=== PATIENT | female | born 1995 | race African-American/Black ===

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

== ENCOUNTER 2017-12-19 12:06 | Emergency (ER) | payer MEDICAID ==
[~2017-12-19] VITALS: Ht 165.1 cm; Wt 70.3 kg
[~2017-12-19 12:06] MED LIST changes: +BACTRIM 400-801 EACH ORAL; +CEPHALEXIN500 MG ORAL; +ZOFRAN ODT8 MG ORAL
[2017-12-19 12:46] VITALS: BP 115/74
[2017-12-19] MEDS ORDERED: Metoclopramide 10mg/2ml Inj IVP ONE (13:15)
[2017-12-19] MEDS ORDERED: Sodium Chloride 500ML 500 ML IV ONE (13:15)
[2017-12-19 13:22] LABS: EOSINOPHILS % (AUTO) 0.2 % (0.0-3.0); HEMATOCRIT 40.1 % (37.0-47.0); HEMOGLOBIN 13.1 G/DL (12.0-16.0); LYMPHOCYTES % (AUTO) 16.2 % (20.0-45.0); MEAN CORPUSCULAR VOLUME 79 FL (80-99); NEUTROPHILS % (AUTO) 75.6 % (45.0-75.0); PLATELET COUNT 213 K/UL (150-450); RED BLOOD COUNT 5.11 M/UL (4.20-5.40); RED CELL DISTRIBUTION WIDTH 13.5 % (11.6-14.8); WHITE BLOOD COUNT 11.6 K/UL (4.8-10.8)
[2017-12-19 14:14] LABS: APPEARANCE,URINE CLEAR; BILIRUBIN, URINE NEGATIVE (NEGATIVE); GLUCOSE, URINE (UA) NEGATIVE (NEGATIVE); KETONES,URINE NEGATIVE (NEGATIVE); LEUKOCYTE ESTERASE ,URINE 1+ (NEGATIVE); NITRITE,URINE NEGATIVE (NEGATIVE); PH,URINE 6.5 (4.5-8.0); PROTEIN,URINE 1+ (NEGATIVE); UROBILINOGEN,URINE 4 MG/DL (0.0-1.0)
[2017-12-19 14:18] LABS: COLOR,URINE YELLOW
--- NOTE | 2017-12-19 14:31 | Emergency Room Report ---
History of Present Illness General Chief Complaint: Vaginal Source: Patient Present Illness HPI 22-year-old female presents emergency department complaining of Vaginal bleeding of bright red blood times one day. Patient reports that she is approximately 6 weeks . Patient denies pain or cramping. Patient denies vaginal discharge otherwise. Patient reports that she recently had ultrasound performed here and IUP has been confirmed. Patient does not know her blood type she has. Patient is . Denies abdominal tenderness, recent trauma or fall. Patient denies fevers, chills, dysuria, urinary frequency. Patient does report moderate nausea. Allergies: Coded Allergies: NO KNOWN DRUG ALLERGIES (Unverified Allergy, Unknown, 05/09/14) Patient History Past Medical History: see triage record Past Surgical History: none Now: Yes - 6 weeks per pt Reviewed Nursing Documentation: PMH: Agreed; PSxH: Agreed Nursing Documentation-PMH Past Medical History: No Stated History Review of Systems All Other Systems: negative except mentioned in HPI Physical Exam Vital Signs Date Time Temp Pulse Resp B/P (MAP) Pulse Ox O2 Delivery O2 Flow Rate FiO2 12/19/17 12:27 98.5 88 18 115/74 100 Room Air 98.4 Sp02 EP Interpretation: reviewed, normal General Appearance: no apparent distress, alert, GCS 15, non-toxic Head: normocephalic, atraumatic ENT: hearing grossly normal, normal voice Neck: full range of motion Respiratory: lungs clear, normal breath sounds, speaking full sentences Cardiovascular #1: regular rate, rhythm Gastrointestinal: normal bowel sounds, non tender, soft, non-distended, no guarding Rectal: deferred Genitourinary: normal inspection, no CVA tenderness, adnexa normal, ext genitalia/vag normal, os closed, other - no obvious blood noted in the vaginal vault. Musculoskeletal: back normal, gait/station normal, normal range of motion, non- tender Neurologic: alert, oriented x3, responsive, motor strength/tone normal, sensory intact, normal gait, speech normal, grossly normal Psychiatric: judgement/insight normal Skin: normal color, no rash, warm/dry, well hydrated Lymphatic: no adenopathy Medical Decision Making PA Attestation Dr. Shah is my supervising Physician whom patient management has been discussed with. Diagnostic Impression: Primary Impression: Spotting during in first trimester Additional Impression: Threatened in early ER Course 22-year-old female presents emergency department complaining of Vaginal bleeding of bright red blood times one day. Patient reports that she is approximately 6 weeks . Patient denies pain or cramping. Patient denies vaginal discharge otherwise. Patient reports that she recently had ultrasound performed here and IUP has been confirmed. Patient does not know her blood type she has. Patient is . Denies abdominal tenderness, recent trauma or fall. Patient denies fevers, chills, dysuria, urinary frequency. Patient does report moderate nausea. [facility] NOTE ABO and Rh not ordered as this is pt. first , RH factor is not a concern until subsequent pregnancies Ddx considered but are not limited to: Fibroid, ectopic , Fibroid, Spontaneous , Vital signs: are WNL, pt. is afebrile Pelvic Exam: Os is closed. H&PE are most consistent with: spotting during early , Inevitable , Spontaneous ORDERS: -Urine hcg- Positive -serum Hcg Quant: 59,817 - Blood/RH type and screen- see attached labs --Review of recent ultrasound shows IUP approximately 6 weeks gestation, -Bedside ultrasound performed today showed normal heart rate. ED INTERVENTIONS: None at this time. DISCHARGE: At this time pt. is stable for d/c to home. Will provide printed patient care instructions, and any necessary prescriptions. Care plan and follow up instructions have been discussed with the patient prior to discharge. Labs Test 12/19/17 13:00 White Blood Count 11.6 K/UL (4.8-10.8) Red Blood Count 5.11 M/UL (4.20-5.40) Hemoglobin 13.1 G/DL (12.0-16.0) Hematocrit 40.1 % (37.0-47.0) Mean Corpuscular Volume 79 FL (80-99) Mean Corpuscular Hemoglobin 25.7 PG (27.0-31.0) Mean Corpuscular Hemoglobin Concent 32.7 G/DL (32.0-36.0) Red Cell Distribution Width 13.5 % (11.6-14.8) Platelet Count 213 K/UL (150-450) Mean Platelet Volume 12.1 FL (6.5-10.1) Neutrophils (%) (Auto) 75.6 % (45.0-75.0) Lymphocytes (%) (Auto) 16.2 % (20.0-45.0) Monocytes (%) (Auto) 7.0 % (1.0-10.0) Eosinophils (%) (Auto) 0.2 % (0.0-3.0) Basophils (%) (Auto) 1.0 % (0.0-2.0) Urine Color Yellow Urine Appearance Clear Urine pH 6.5 (4.5-8.0) Urine Specific [place] 1.010 (1.005-1.035) Urine Protein 1+ (NEGATIVE) Urine Glucose (UA) Negative (NEGATIVE) Urine Ketones Negative (NEGATIVE) Urine Blood Negative (NEGATIVE) Urine Nitrite Negative (NEGATIVE) Urine Bilirubin Negative (NEGATIVE) Urine Urobilinogen 4 MG/DL (0.0-1.0) Urine Leukocyte Esterase 1+ (NEGATIVE) Urine RBC 0-2 /HPF (0 - 2) Urine WBC 2-4 /HPF (0 - 2) Urine Squamous Epithelial Cells Few /LPF (NONE/OCC) Urine Bacteria Occasional /HPF (NONE) Human Chorionic Gonadotropin, Quant 66184 mIU/mL (1-6) Last Vital Signs Date Time Temp Pulse Resp B/P (MAP) Pulse Ox O2 Delivery O2 Flow Rate FiO2 12/19/17 12:46 98.4 88 18 115/74 100 Room Air 98.4 Disposition: HOME, SELF-CARE Condition: Stable Scripts Vit #91/Fe Fum/Fa/Dha ( + DHA COMBO PACK) 1 Each Combo..pkg 1 EACH PO DAILY, #1 PACK 4 Refills Prov: Ann Dean 12/19/17 Referrals: [facility] (PCP) Departure Forms: Return to Work Return to Work Date: Dec 22, 2017 Work Restrictions: No Heavy Lifting, No Prolonged Standing Other Restrictions: light duty x 1 week upon return. Return to Full Activity: Dec 29, 2017 Patient Instructions: Threatened Miscarriage, [id number] Additional Instructions: Take medications as directed. Follow up with a OBGYN within 3 days, even if your symptoms have resolved. Return sooner to ED if new symptoms occur, or current symptoms become worse. - Please note that this Emergency Department Report was dictated using [employer]oquiidirector translational technology software, occasionally this can lead to erroneous entry secondary to interpretation by the dictation equipment. Ann Dean Dec 19, 2017 14:31
[2017-12-19] MEDS ORDERED: PRENATAL + DHA1 EAC1 PO (14:32)
[2017-12-19 14:43] VITALS: BP 115/74
== END 2017-12-19 14:43 | disposition home or self-care (01) ==
LOC: EMR 12:22
DX: O20.0 Threatened abortion (principal); Z3A.01 Less than 8 weeks gestation of pregnancy
CPT/HCPCS: 36415; 81001; 84702; 85025; 99283; J7040; J2765

== ENCOUNTER 2018-01-14 10:48 | Emergency (ER) | payer MEDICAID ==
[~2018-01-14] VITALS: Ht 167.6 cm; Wt 70.8 kg
[~2018-01-14 10:48] MED LIST changes: +PRENATAL + DHA1 EAC1 PO
[2018-01-14 11:06] VITALS: BP 104/76
--- NOTE | 2018-01-14 12:09 | Emergency Room Report ---
History of Present Illness General Chief Complaint: Nausea, Vomiting, and Diarrhea Source: Patient Present Illness [facility] Ms. Lopez is a who is currently 10 weeks 6 days according to estimate due date 08/06/2018. She has had morning sickness throughout her . She continues to have vomiting today with yellow emesis. She developed diarrhea earlier today. She has mild stomach upset. She denies chest pain. Denies headache. She feels lightheaded. She feels as if she needs IV fluids. She is followed by [facility] Dr. Murillo. She plans to deliver a baby at [facility]. Allergies: Coded Allergies: NO KNOWN DRUG ALLERGIES (Unverified Allergy, Unknown, 05/09/14) Patient History Past Medical History: none Past Surgical History: other - two surgeries for pilonidal abscess Last Menstrual Period: 10/10/17 Now: Yes : 1 Para: 0 Nursing Documentation-[facility] Past Medical History: No Stated History Review of Systems Constitutional: Reports: malaise; Denies: fever Cardiovascular: Denies: chest pain All Other Systems: negative except mentioned in HPI Physical Exam Vital Signs Date Time Temp Pulse Resp B/P (MAP) Pulse Ox O2 Delivery O2 Flow Rate FiO2 01/14/18 11:02 98.8 76 16 104/76 100 98.8 Sp02 EP Interpretation: reviewed, normal General Appearance: no apparent distress, alert, GCS 15, non-toxic, other - well-appearing talkative Head: normocephalic, atraumatic Eyes: bilateral eye normal inspection ENT: hearing grossly normal, normal pharynx, no angioedema, normal voice Neck: full range of motion, supple/symm/no masses Respiratory: chest non-tender, lungs clear, normal breath sounds, speaking full sentences Cardiovascular #1: regular rate, rhythm, no edema Cardiovascular #2: 2+ carotid (R), 2+ carotid (L), 2+ radial (R), 2+ radial (L) , 2+ dorsalis pedis (R), 2+ dorsalis pedis (L) Gastrointestinal: normal bowel sounds, non tender, soft, non-distended, no guarding, no rebound Musculoskeletal: back normal, gait/station normal, normal range of motion, non- tender, calf tenderness Neurologic: alert, oriented x3, responsive, motor strength/tone normal, sensory intact, speech normal Psychiatric: judgement/insight normal, memory normal, mood/affect normal, no suicidal/homicidal ideation Skin: normal color, no rash, warm/dry, well hydrated Lymphatic: no adenopathy Medical Decision Making Diagnostic Impression: Primary Impression: Hyperemesis gravidarum ER Course Ms. Lopez presents with hyperemesis gravidarum. I do not suspect ectopic . She does not have any pain. She denies any vaginal bleeding or vaginal discharge. No indication of infection. She has had normal ultrasound according to her report. She received IV fluid therapy and discharged home. I have prescribed promethazine. Last Vital Signs Date Time Temp Pulse Resp B/P (MAP) Pulse Ox O2 Delivery O2 Flow Rate FiO2 01/14/18 11:06 98.8 76 16 104/76 100 98.8 Disposition: HOME, SELF-CARE Condition: Stable Referrals: NON PHYSICIAN (PCP) Monik Perkins MD Jan 14, 2018 12:09
[2018-01-14] MEDS ORDERED: PHENERGAN25 M1 ORAL (12:11)
[2018-01-14 12:53] VITALS: BP 109/58
[2018-01-14 12:54] VITALS: BP 109/58
== END 2018-01-14 12:55 | disposition home or self-care (01) ==
LOC: EMR 11:55
DX: O21.0 Mild hyperemesis gravidarum (principal); R19.7 Diarrhea, unspecified; Z3A.10 10 weeks gestation of pregnancy
CPT/HCPCS: 96360; 99284

== ENCOUNTER 2018-02-26 17:52 | Emergency (ER) | payer MEDICAID ==
[~2018-02-26] VITALS: Ht 165.1 cm; Wt 73.5 kg
[~2018-02-26 17:52] MED LIST changes: +PHENERGAN25 M1 ORAL
--- NOTE | 2018-02-26 18:41 | Emergency Room Report ---
History of Present Illness General Chief Complaint: Skin Rash/Abscess Present Illness HPI 22-year-old female presents to the emergency department complaining of 8 out of 10 in severity pain, swelling, tenderness and erythema to an area in the right groin progressive 2 days. Patient reports history of frequent soft tissue abscesses that require incision and drainage and antibiotics. Patient fevers or chills. Patient reports that she is currently 4 months . She is . Pt. states that she is UTD with vaccinations. Denies swollen tender lymph nodes. pt. denies hx of STI's reports she was just recently checked and specifically denies G&C. She denies abdominal pain, cramping, vaginal discharge or bleeding. no relief with hot compresses or hot baths at home. Walking exacerbates her pain. Allergies: Coded Allergies: NO KNOWN DRUG ALLERGIES (Unverified Allergy, Unknown, 05/09/14) Patient History Past Medical History: see triage record Past Surgical History: none Pertinent Family History: none Last Menstrual Period: 10/2017 Now: Yes - 4 months : 1 Para: 0 Reviewed Nursing Documentation: PMH: Agreed; PSxH: Agreed Nursing Documentation-PMH Hx Neurological Problems: No - buttock cyst surgery Review of Systems All Other Systems: negative except mentioned in HPI Physical Exam Vital Signs Date Time Temp Pulse Resp B/P (MAP) Pulse Ox O2 Delivery O2 Flow Rate FiO2 02/26/18 18:00 98.2 68 18 119/73 96 Room Air Sp02 EP Interpretation: reviewed, normal General Appearance: well appearing, no apparent distress, alert, GCS 15, non- toxic Head: normocephalic, atraumatic Eyes: bilateral eye normal inspection, bilateral eye PERRL ENT: hearing grossly normal, normal voice Neck: full range of motion Respiratory: lungs clear, normal breath sounds, speaking full sentences Cardiovascular #1: regular rate, rhythm, no edema Gastrointestinal: non tender, soft, other - Gravid Genitourinary: other - 3cm tunneled abscess, area of fluctuance is palpated. swelling noted, and palpable right inguinal lymph node. no blisters or vessicles Musculoskeletal: back normal, gait/station normal, normal range of motion, non- tender Neurologic: alert, oriented x3, responsive, motor strength/tone normal, sensory intact, speech normal, grossly normal Psychiatric: judgement/insight normal Skin: normal color, no rash, warm/dry, well hydrated, other - 3cm tunneled abscess in the right inguinal area, There is an area of fluctuance is palpated. swelling noted, and palpable right inguinal lymph node Lymphatic: other - right inguinal lad Procedures Incision and Drainage Incision and Drainage : Consent: Verbal Site: Right groin Blade Size: 11 I & D Procedure: betadine prep, sterile drapes applied, sterile dressing applied, gauze wick placed Wound Location: other - right broin Wound's Depth, Shape: linear Wound Length (cm): 1 Wound Explored: contaminated - moderate amount of purulent malodorus pus expressed from incision Anesthesia: Lidocaine w/ Epi Volume Anesthetic (ccs): 1 Splint Applied?: No Sling Applied?: No Patient Tolerated: Well Complications: None Medical Decision Making PA Attestation Dr. trinidad is my supervising Physician whom patient management has been discussed with. Diagnostic Impression: Primary Impression: Abscess ER Course 22-year-old female presents to the emergency department complaining of 8 out of 10 in severity pain, swelling, tenderness and erythema to an area in the right groin progressive 2 days. Patient reports history of frequent soft tissue abscesses that require incision and drainage and antibiotics. Patient fevers or chills. Patient reports that she is currently 4 months . She is . Pt. states that she is UTD with vaccinations. Denies swollen tender lymph nodes. pt. denies hx of STI's reports she was just recently checked and specifically denies G&C. She denies abdominal pain, cramping, vaginal discharge or bleeding. no relief with hot compresses or hot baths at home. Walking exacerbates her pain. Ddx considered but are not limited to cellulitis, abscess, LGV, cystic acne, necrotizing fasciitis, insect bite. Vital signs: are WNL, pt. is afebrile H&PE are most consistent with inguinal abscess, suspicious for hidradenitis. ORDERS: none required at this time, the diagnosis is clinical ED INTERVENTIONS: -I & D. - Keflex PO -Bacitracin TP. DISCHARGE: At this time pt. is stable for d/c to home. Will provide printed patient care instructions, and any necessary prescriptions. Care plan and follow up instructions have been discussed with the patient prior to discharge. Last Vital Signs Date Time Temp Pulse Resp B/P (MAP) Pulse Ox O2 Delivery O2 Flow Rate FiO2 02/26/18 18:00 98.2 68 18 119/73 96 Room Air Disposition: HOME, SELF-CARE Condition: Stable Scripts Chlorhexidine Gluconate* (HIBICLENS*) 118 Ml Liquid 1 APPLIC TP DAILY, #118 ML 3 Refills Prov: Ann Dean 02/26/18 Cephalexin* (KEFLEX*) 500 Mg Capsule 500 MG ORAL EVERY 12 HOURS for 7 Days, #14 CAP 0 Refills Prov: Ann Dean 02/26/18 Acetaminophen* (TYLENOL EXTRA STRENGTH*) 500 Mg Tablet 500 MG ORAL Q6H, #20 TAB 0 Refills Prov: Ann Dean 02/26/18 Referrals: NON PHYSICIAN (PCP) Patient Instructions: Abscess Additional Instructions: Take medications as directed. Follow up with a Primary Care Provider in 3-5 days, even if your symptoms have resolved. --Please review list of primary care clinics, if you do not already have a primary care provider Return sooner to ED if new symptoms occur, or current symptoms become worse. Do not drink alcohol, drive, or operate heavy machinery while taking [ ] as this may cause drowsiness. - Please note that this Emergency Department Report was dictated using [employer] removalist's assistant technology software, occasionally this can lead to erroneous entry secondary to interpretation by the dictation equipment. Ann Dean Feb 26, 2018 18:41
[2018-02-26] MEDS ORDERED: CEPHALEXIN500 MG ORAL (18:59)
[2018-02-26] MEDS ORDERED: TYLENOL EXTRA500 MG ORAL (18:59)
[2018-02-26] MEDS ORDERED: HIBICLENS118 ML TP (18:59)
[2018-02-26] MEDS ORDERED: Cephalexin 500mg cap ORAL ONE (19:15)
[2018-02-26 19:17] VITALS: BP_SYST 112; BP_SYST 119; BP_DIAS 73
== END 2018-02-26 19:18 | disposition home or self-care (01) ==
LOC: EMR 18:20
DX: L02.214 Cutaneous abscess of groin (principal); O26.90 Pregnancy related conditions, unspecified, unspecified trimester; Z3A.00 Weeks of gestation of pregnancy not specified
CPT/HCPCS: 10060; 99283

== ENCOUNTER 2018-04-24 06:46 | Emergency (ER) | payer MEDICAID ==
[~2018-04-24] VITALS: Ht 167.6 cm; Wt 80.7 kg
[~2018-04-24 06:46] MED LIST changes: +HIBICLENS118 ML TP; +TYLENOL EXTRA500 MG ORAL
--- NOTE | 2018-04-24 07:05 | NUR ---
ED Nurse Note: RECIEVED PT FROM HOME, HERE WITH C/O ABCESS / BOIL TO LEFT GROIN FOR PAST 2 DAYS, ABCESS IS SWOLLEN AND RED WITH WHITE HEAD, APPEARS TO BE READY TO DRAIN, PT HAS HISTORY OF ABCESSESS AND BOILS, EVEN HAVING TO HAVE SOME SURGICALLY REMOVED, PT IS 5 MONTHS , DENIES ANY COMPLICATIONS, PT DENIES FEVERS, DIARRHEA, NAUSEA, VOMITING OR ANY OTHER COMPLAINTS OR DISCOMFORTS, PT GOWNED AND ASSISTED TO [facility], SHIFT REPORT GIVEN TO AM NURSE TO RESUME CARE AND FOLLOW.
[2018-04-24 07:24] VITALS: BP 110/65
[2018-04-24] MEDS ORDERED: CEPHALEXIN500 MG ORAL (07:35)
--- NOTE | 2018-04-24 07:38 | Emergency Room Report ---
History of Present Illness General Chief Complaint: Skin Rash/Abscess Source: Patient Present Illness HPI Patient presents with complaints of a lesion to the left groin area reports that she has noticed that for the past several days Denies any fevers or chills denies any chest pain or shortness of breath Patient is approximately 5 months denies any vomiting or diarrhea She reports increased pain and discomfort to the lesion Denies any other back or flank pain Allergies: Coded Allergies: NO KNOWN DRUG ALLERGIES (Unverified Allergy, Unknown, 05/09/14) Patient History Past Medical History: see triage record Pertinent Family History: none Last Menstrual Period: 10/2017 Now: Yes - 5 months : 1 Para: 0 Reviewed Nursing Documentation: PMH: Agreed; PSxH: Agreed Nursing Documentation-PMH Past Medical History: No History, Except For Hx Neurological Problems: No - buttock cyst surgery Review of Systems All Other Systems: negative except mentioned in HPI Physical Exam Vital Signs Date Time Temp Pulse Resp B/P (MAP) Pulse Ox O2 Delivery O2 Flow Rate FiO2 04/24/18 06:51 97.9 90 16 112/64 99 Room Air Sp02 EP Interpretation: reviewed, normal General Appearance: well appearing, no apparent distress Head: normocephalic, atraumatic Eyes: bilateral eye PERRL, bilateral eye EOMI ENT: normal pharynx Respiratory: lungs clear Musculoskeletal: normal inspection Neurologic: alert, oriented x3, responsive Skin: other - Small pustule/folliculitis left inguinal region, well-demarcated Lymphatic: no adenopathy Medical Decision Making Diagnostic Impression: Primary Impression: folliculitis ER Course The area in question is fairly small Appears to be consistent with a folliculitis Patient is recommended to continue soaking in warm bath Was placed on short duration of Keflex secondary to previous antibiotic coverage Patient reports that she has been seen by her physician for this and was reported that they cannot do anything until the is over I recommended for the patient to follow closely with her [employer] physician Last Vital Signs Date Time Temp Pulse Resp B/P (MAP) Pulse Ox O2 Delivery O2 Flow Rate FiO2 04/24/18 07:24 97.8 78 15 110/65 99 Room Air Status: unchanged Disposition: HOME, SELF-CARE Condition: Stable Scripts Cephalexin* (KEFLEX*) 500 Mg Capsule 500 MG ORAL EVERY 8 HOURS for 3 Days, #9 CAP 0 Refills Prov: Emilia Soares DO 04/24/18 Referrals: NON PHYSICIAN (PCP) Patient Instructions: Folliculitis Additional Instructions: Please follow-up with your [employer] physician in the next 1-2 days. The emergency room has been visited several times for similar complaint during her , and your specialist should be the next consultation Emilia Soares DO Apr 24, 2018 07:38
[2018-04-24 07:44] VITALS: BP 115/78
--- NOTE | 2018-04-24 07:45 | NUR ---
ED Nurse Note: Discharge instructions given to pt. Answered all questions. Verbalized undertsanding. No acute distress noted. ID band removed. Left ER w/ steady gait and all belongings.
== END 2018-04-24 07:46 | disposition home or self-care (01) ==
LOC: EMR 07:02
DX: L73.9 Follicular disorder, unspecified (principal)
CPT/HCPCS: 99282

== ENCOUNTER 2018-06-07 09:49 | Emergency (ER) | payer MEDICAID ==
[~2018-06-07] VITALS: Ht 167.6 cm; Wt 85.7 kg
[2018-06-07] MEDS ORDERED: PRENATAL 19 TA1 EAC1 PO (09:59)
[2018-06-07 10:00] VITALS: BP 118/73
--- NOTE | 2018-06-07 10:02 | NUR ---
ED Nurse Note: pt walked in to ED due to left side headache for last 3 days. pt denies any head injury or trauma. no nausea or vomiting or blurred vision. ambulatory with steady gait. pt is 31 weeks . been taking tylenol but did not take yesterday. AAO x4. respirations even and non-labored noted. will wait for the further order.
--- NOTE | 2018-06-07 10:33 | Emergency Room Report ---
History of Present Illness General Chief Complaint: Headache Source: Patient Present Illness HPI Patient presents with complaints of a headache Located just above her left ear Reports the pain came on about 2-3 days ago Has not taken any medications and Tylenol does not usually do anything for the pain Denies any visual changes denies any ear pain denies any mastoid pain Denies any chest pain or shortness of breath Patient is approximately 6 months denies any vaginal spotting or bleeding denies any other abdominal complaints Allergies: Coded Allergies: NO KNOWN DRUG ALLERGIES (Unverified Allergy, Unknown, 05/09/14) Patient History Past Medical History: see triage record Pertinent Family History: none Last Menstrual Period: 11/06/2018 Now: Yes : 1 Para: 0 Reviewed Nursing Documentation: PMH: Agreed; PSxH: Agreed Nursing Documentation-PMH Past Medical History: No History, Except For Hx Neurological Problems: No - buttock cyst surgery Review of Systems All Other Systems: negative except mentioned in HPI Physical Exam Vital Signs Date Time Temp Pulse Resp B/P (MAP) Pulse Ox O2 Delivery O2 Flow Rate FiO2 06/07/18 09:55 97.5 83 16 118/73 97 Room Air Sp02 EP Interpretation: reviewed, normal General Appearance: well appearing, no apparent distress Head: normocephalic, atraumatic Eyes: bilateral eye PERRL, bilateral eye EOMI ENT: hearing grossly normal, no angioedema Neck: supple, no meningismus Respiratory: lungs clear, no retraction, no accessory muscle use Cardiovascular #1: regular rate, rhythm Gastrointestinal: other - abdomen without discomfort Musculoskeletal: normal inspection Neurologic: alert, oriented x3, responsive Skin: no rash, warm/dry Lymphatic: no adenopathy Medical Decision Making Diagnostic Impression: Primary Impression: Headache ER Course Multiple differentials are considered Including but not limited to neurological, neurosurgical pathology Patient has a benign neurological exam Mastoid is nontender ear exam is clear Patient has fairly specific pinpoint discomfort just above the left ear Does not appear to be associated with TMJ Patient otherwise has a benign medical evaluation at this time stable for close follow-up with her primary physician Patient did ask regarding the at this time there is no correlation between the patient's complaints and an obstetric evaluation and patient is stable for close follow-up Last Vital Signs Date Time Temp Pulse Resp B/P (MAP) Pulse Ox O2 Delivery O2 Flow Rate FiO2 06/07/18 10:00 97.5 83 16 118/73 97 Room Air Status: unchanged Disposition: HOME, SELF-CARE Condition: Stable Patient Instructions: General Headache Without Cause Additional Instructions: Patient is provided with the discharge instructions notified to follow up with primary doctor in the next 2-3 days otherwise return to the er with any worsening symptoms. Please note that this report is being documented using DRAGON technology. This can lead to erroneous entry secondary to incorrect interpretation by the dictating instrument. Emilia Soares DO Jun 07, 2018 10:33
--- NOTE | 2018-06-07 10:33 | NUR ---
ER DISCHARGE NOTE: Patient is cleared to be discharged per ERMD, pt is aox4, on room air, with stable vital signs. pt was given dc instructions, pt was able to verbalize understanding, pt id band removed without complications. pt is able to ambulate with steady gait. pt took all belongings.
== END 2018-06-07 10:40 | disposition home or self-care (01) ==
LOC: EMR 10:20
DX: R51 Headache (principal)
CPT/HCPCS: 99281

== ENCOUNTER 2018-07-25 10:25 | Emergency (ER) | payer MEDICAID ==
[~2018-07-25] VITALS: Ht 166.4 cm; Wt 92.1 kg
[~2018-07-25 10:25] MED LIST changes: +PRENATAL 19 TA1 EAC1 PO
--- NOTE | 2018-07-25 10:40 | NUR ---
ED Nurse Note: Patient walked into ED c/o right groin area abscess. patient reports that it has been there for 3 days. patient is 38 weeks . patient is alert awake x4. ambulatory. in no acute distress.
[2018-07-25] MEDS ORDERED: Lidocaine 1% 10mg/ml/Epi 0.005mg/ml 30ml vial INJ ONE (10:45)
[2018-07-25 10:47] VITALS: BP 117/68
[2018-07-25] MEDS ORDERED: CEPHALEXIN500 MG ORAL (11:00)
[2018-07-25] MEDS ORDERED: MUPIROCIN22 GM TOPIC (11:00)
[2018-07-25 11:02] VITALS: BP 117/68
--- NOTE | 2018-07-25 11:06 | NUR ---
ER DISCHARGE NOTE: Patient is cleared to be discharged per ERMD, pt is aox4, on room air, with stable vital signs. pt was given dc and prescription instructions, pt was able to verbalize understanding, pt id band removed without complications. pt is able to ambulate with steady gait. pt took all belongings.
--- NOTE | 2018-07-25 12:30 | Emergency Room Report ---
History of Present Illness General Chief Complaint: Skin Rash/Abscess Source: Patient Present Illness HPI Patient presents emergency department today complaining of a swelling in the right groin. 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 She feels that she's getting another abscess. Patient is 38 weeks . She denies having any contractions. Denies any nausea vomiting diarrhea chills. Denies any fever. Patient states that she does not shave in the groin area because she's had recent infections and does not do that anymore. However she is upset that she still getting another abscess. She denies any dysuria urinary frequency. No other complaints are noted.No other modifying factors. No other associated signs and symptoms. No other complaints were noted. Allergies: Coded Allergies: NO KNOWN DRUG ALLERGIES (Unverified Allergy, Unknown, 05/09/14) Patient History Past Medical History: other - Abscess PMH Narrative 38 weeks Past Surgical History: none Social History: Denies: smoking, alcohol use, drug use Now: Yes Reviewed Nursing Documentation: PMH: Agreed; PSxH: Agreed Nursing Documentation-PMH Past Medical History: No History, Except For Hx Neurological Problems: No - buttock cyst surgery Review of Systems All Other Systems: negative except mentioned in HPI Physical Exam Vital Signs Date Time Temp Pulse Resp B/P (MAP) Pulse Ox O2 Delivery O2 Flow Rate FiO2 07/25/18 10:33 98.2 83 18 117/68 98 Room Air Sp02 EP Interpretation: reviewed, normal General Appearance: normal inspection, well appearing, no apparent distress, alert Head: atraumatic Eyes: bilateral eye normal inspection ENT: normal ENT inspection, hearing grossly normal, normal voice Neck: normal inspection, full range of motion, supple, no bony tend Respiratory: normal inspection, lungs clear, normal breath sounds, no respiratory distress, no retraction, no wheezing Cardiovascular #1: regular rate, rhythm, no edema Gastrointestinal: normal inspection, normal bowel sounds, non tender, soft, no guarding, no hernia Genitourinary: no CVA tenderness, other - Right groin abscess approximately 3 cm in length. Fluctuant. Musculoskeletal: normal inspection, back normal, normal range of motion Neurologic: normal inspection, alert, responsive, speech normal Psychiatric: normal inspection, judgement/insight normal, mood/affect normal Skin: normal inspection, normal color, no rash Procedures Laceration/Wound Repair Laceration/Wound Repair : Consent: Verbal Wound Length (cm): 1 Volume Anesthetic (ccs): 3 Incision and Drainage Incision and Drainage : Consent: Verbal Site: Right groin Blade Size: 11 I & D Procedure: betadine prep, sterile drapes applied Wound Location: lower extremity - Right groin Wound's Depth, Shape: superficial Wound Length (cm): 1 Wound Explored: Abscess expressed Anesthesia: Lidocaine w/ Epi Volume Anesthetic (ccs): 3 Patient Tolerated: Well Complications: None Medical Decision Making Diagnostic Impression: Primary Impression: Abscess ER Course Patient presents emergency department today complaining abscess in the right groin. Procedure note: This required incision and drainage. Wound was prepped. 1% lidocaine with epinephrine was injected in the area. Approximately 3 mL lidocaine was used. 1 cm incision was made. Wound was expressed. Pus was expressed. Patient develop procedure without difficulty. Patient was given wound care instructions. Patient was given prescription for Keflex.Patient is advised to follow up with primary doctor in 2-3 days and return the emergency room for any worsening symptoms and as needed. Last Vital Signs Date Time Temp Pulse Resp B/P (MAP) Pulse Ox O2 Delivery O2 Flow Rate FiO2 07/25/18 11:02 98.2 83 18 117/68 98 Room Air Disposition: HOME, SELF-CARE Condition: Stable Scripts Mupirocin* (MUPIROCIN*) 22 Gm Oint...g. 1 APPLIC TOPIC THREE TIMES A DAY for 7 Days, GM Prov: Lars Pepper MD 07/25/18 Cephalexin* (KEFLEX*) 500 Mg Capsule 500 MG ORAL EVERY 6 HOURS for 7 Days, CAP Prov: Lars Pepper MD 07/25/18 Referrals: NON PHYSICIAN (PCP) Patient Instructions: Abscess Lars Pepper MD Jul 25, 2018 12:30
== END 2018-07-25 11:15 | disposition home or self-care (01) ==
LOC: EMR 11:15
DX: O26.893 Other specified pregnancy related conditions, third trimester (principal); Z3A.38 38 weeks gestation of pregnancy; L02.214 Cutaneous abscess of groin
CPT/HCPCS: 99283

== ENCOUNTER 2018-07-25 20:55 | Emergency (ER) | payer MEDICAID ==
[~2018-07-25] VITALS: Ht 167.6 cm; Wt 92.1 kg
[~2018-07-25 20:55] MED LIST changes: +MUPIROCIN22 GM TOPIC
--- NOTE | 2018-07-25 21:10 | NUR ---
ED Nurse Note: Right inguinal abscess; seen by Dr. Pepper earlier for same. Pt is 38 weeks . AO4. ACCOMPANIED BY PARENT. HEART TONE NOTED VIA ULTRASOUND BY KLEBER
[2018-07-25] MEDS ORDERED: Lidocaine 1% 10mg/ml/EPI 0.01mg/ml 20ml INJ ONE ×2 (21:38→21:45)
[2018-07-25] MEDS ORDERED: Lidocaine 1% 10mg/ml/EPI 0.01mg/ml 50ml INJ ONE (21:45)
[2018-07-25 21:51] VITALS: BP 117/72
--- NOTE | 2018-07-25 22:20 | Emergency Room Report ---
History of Present Illness General Chief Complaint: Skin Rash/Abscess Source: Patient Present Illness HPI Patient is a 22-year-old female who presented after increased pain to abscess area. Patient had recent visit for perineal abscess. She had prior history of multiple abscesses to her perineal area as well as her axilla. She had previously been told she had hidradenitis suppurativa. Patient was noted to have no fever. She reports having normal at 38 weeks. She denies any vaginal bleeding. Baby is moving normally. Patient had not been having any leakage of fluid or contractions. Allergies: Coded Allergies: NO KNOWN DRUG ALLERGIES (Unverified Allergy, Unknown, 05/09/14) Patient History Last Menstrual Period: OCTOBER 2017 Now: Yes - 38 weeks : 1 Para: 0 Reviewed Nursing Documentation: PMH: Agreed; PSxH: Agreed Nursing Documentation-PMH Past Medical History: No Stated History Hx Neurological Problems: No - buttock cyst surgery Review of Systems All Other Systems: negative except mentioned in HPI Physical Exam Vital Signs Date Time Temp Pulse Resp B/P (MAP) Pulse Ox O2 Delivery O2 Flow Rate FiO2 07/25/18 21:02 98.6 100 18 117/72 100 Room Air General Appearance: well appearing, no apparent distress, alert, GCS 15, non- toxic Head: normocephalic, atraumatic ENT: hearing grossly normal, normal voice Neck: full range of motion, supple Respiratory: no respiratory distress, speaking full sentences Gastrointestinal: other - gravid uterus Genitourinary: other - abscess Neurologic: alert, oriented x3, normal gait Psychiatric: mood/affect normal Skin: other - right labial abscess, fluctuance Procedures Incision and Drainage Incision and Drainage : Consent: Emergent Blade Size: 11 I & D Procedure: betadine prep, sterile drapes applied Wound Location: pelvis Wound's Depth, Shape: superficial Wound Length (cm): 1 Wound Explored: clean Irrigated w/ Saline (ccs): 10 Anesthesia: Lidocaine w/ Epi Patient Tolerated: Well Complications: None Progress about 3cc moderate amount of purulent material. Medical Decision Making Diagnostic Impression: Primary Impression: Abscess ER Course Patient presented for skin rash. Differential diagnosis included was not limited to abscess, cellulitis, folliculitis, necrotizing fascitis. Patient was noted to have prior history of hidradenitis suppurativa. Abscess was incised and drained after local anesthetic with 3 cc of lidocaine with epinephrine. Patient tolerated this well. Patient was advised to have wound rechecked with her [employer] in 2 days. Last Vital Signs Date Time Temp Pulse Resp B/P (MAP) Pulse Ox O2 Delivery O2 Flow Rate FiO2 07/25/18 21:51 98.6 100 18 117/72 100 Room Air Status: improved Disposition: HOME, SELF-CARE Condition: Stable Referrals: NON PHYSICIAN (PCP) Jose Shah MD Jul 25, 2018 22:20
[2018-07-25 22:30] VITALS: BP 117/72
--- NOTE | 2018-07-25 22:30 | NUR ---
ER DISCHARGE NOTE: Patient is cleared to be discharged per ERMD, pt is aox4, on room air, with stable vital signs. ACCOMPANIED BY PARENT. pt was given dc and prescription instructions, pt was able to verbalize understanding, pt id band REMOVED. pt is able to ambulate with steady gait. pt took all belongings.
== END 2018-07-25 22:30 | disposition home or self-care (01) ==
LOC: EMR 21:32
DX: O23.593 Infection of other part of genital tract in pregnancy, third trimester (principal); Z3A.38 38 weeks gestation of pregnancy
CPT/HCPCS: 10060; 99283; Z7502